=== PATIENT | male | born 1975 | race African-American/Black ===

== ENCOUNTER 2016-12-18 06:23 | Observation (INO) | payer SELFPAY ==
[2016-12-18] MEDS ORDERED: LORazepam INJ* 2 MG/ML 1 ML VIAL ONE ×2 (06:34→08:14)
[2016-12-18 06:44] LABS: Hematocrit 43 % (42-52); Hemoglobin 14.2 g/dl (14.0-18.0); Mean Corpuscular HGB Conc 33 g/dl (31-36); Mean Corpuscular Hemoglobin 30 pg (27-31); Mean Corpuscular Volume 91 fL (80-94); Mean Platelet Volume 10 um3 (7.4-10.4); Red Blood Count 4.78 10^6/ul (4.0-5.4); Red Cell Distribution Width 15 % (10.5-15); White Blood Count 11.2 10^3/ul (3.5-10.8)
[2016-12-18 06:47] LABS: Add Diff/Slide Review? Slide Review Added; Comments Flag Yes
--- NOTE | 2016-12-18 06:48 | ED ---
Candis Ohara Michael, scribed for Sukhdev Shoemaker MD on 12/18/16 at 0632 . Neurological HPI - HPI Summary HPI Summary: 64 y/o male was BIBA to the ED presenting with a sz episode this morning. The pt was found in the bathroom with blood on the floor and a large facial contusion on his forehead. He was not actively seizing when EMS arrived to the scene, and is arousal to voice per EMS. The pt's reports he has been off Keppra and other sz medication for 3 days per EMS. The PMHx is significant for sz. The HPI is limited due to level 5 caveat. - History of Current Complaint Stated Complaint: SEIZURE Hx Obtained From: EMS, Medical Records Hx From Patient Unobtainable Due To: Altered Mental Status Onset/Duration: Sudden Onset Timing: Intermittent Episodes Lasting: Onset Severity: Moderate Current Severity: Moderate Seizure Severity: Moderate Aggravating: Unknown Alleviating: Unknown Associated Signs and Symptoms: Positive: Seizure, AMS - Allergy/Home Medications Allergies/Adverse Reactions: Allergies Allergy/AdvReac Type Severity Reaction Status Date / Time No Known Allergies Allergy Verified 12/18/16 06:51 PMH/Surg Hx/FS Hx/Imm Hx Neurological History: Reports: Hx Seizures - Family History Known Family History: Positive: Unknown Family History: limited due to level 5 caveat - Social History Lives: With Family Review of Systems - ROS Summary Review of Systems Summary: limited due to level 5 caveat Neurological: Other - Sz. AMS. All Other Systems Reviewed And Are Negative: No Physical Exam Triage Information Reviewed: Yes Vital Signs Reviewed: Yes Completion Of Physical Exam Limited Due To: Extremis Appearance: Positive: Ill-Appearing Skin: Positive: Warm Head/Face: Positive: Other - sts mid forehead Eyes: Positive: KAREN Respiratory/Lung Sounds: Positive: Breath Sounds Present Cardiovascular: Positive: RRR Abdomen Description: Positive: Nontender, Soft Musculoskeletal: Positive: Strength/ROM Intact Neurological: Positive: Sensory/Motor Intact Diagnostics - Laboratory Result Diagrams: 12/19/16 06:42 12/19/16 06:41 Lab Statement: Any lab studies that have been ordered have been reviewed, and results considered in the medical decision making process. Course/Dx - Course Course Of Treatment: Pt is signed out to Dr. Valente. - Diagnoses Provider Diagnoses: RECURRENT SEIZURES, Status epilepticus Discharge - Discharge Plan Condition: Stable Disposition: ADMITTED TO [facility] The documentation as recorded by the Candis chaves Michael accurately reflects the service I personally performed and the decisions made by me, Sukhdev Shoemaker MD.
[2016-12-18 06:57] LABS: ALT 37 U/L (7-52); AST 35 U/L (13-39); Albumin 4.2 g/dL (3.2-5.2); Alkaline Phosphatase 85 U/L (34-104); Anion Gap 15 mmol/L (2-11); Blood Urea Nitrogen 13 mg/dL (6-24); CO2 Carbon Dioxide 20 mmol/L (22-32); Calcium 9.4 mg/dL (8.6-10.3); Chloride 101 mmol/L (101-111); EGFR African American 88.4 (>60); EGFR Non-African American 68.7 (>60); Globulin 3.1 g/dL (2-4); Glucose 133 mg/dL (70-100); Magnesium 1.8 mg/dL (1.9-2.7); Sodium 136 mmol/L (133-145); Total Protein 7.3 g/dL (6.4-8.9)
[2016-12-18 07:19] LABS: Alcohol < 10 mg/dL (<10)
--- NOTE | 2016-12-18 07:58 | RAD ---
INDICATION: Seizure. COMPARISON: There are no prior studies available for comparison. TECHNIQUE: Contiguous axial sections of the brain were obtained from the skull base to the vertex without contrast. FINDINGS: The ventricles, cisterns and sulci are within normal limits. No significant focal abnormality or mass effect is seen. There is no evidence for hemorrhage. There is focal soft tissue swelling and a hematoma anterior to the left frontal bone measuring approximately 4.1 x 1.0 cm in size. No fracture is seen. The visualized portion of the paranasal sinuses and mastoid air cells appear clear. IMPRESSION: 1. NO EVIDENCE FOR ACUTE INTRACRANIAL NORMALITY. 2. SOFT TISSUE SWELLING AND HEMATOMA IN THE SCALP ANTERIOR TO THE LEFT FRONTAL BONE.
[2016-12-18] MEDS ORDERED: Fosphenytoin(*) 1,000 MG in NS 0.9% 50 ML* 50 ML IVPB ONE (08:17)
[2016-12-18] MEDS ORDERED: LORazepam INJ* 2 MG/ML 1 ML VIAL IV PUSH ONE (08:18)
[2016-12-18] MEDS ORDERED: NS 0.9% 1000 ML* 2,000 ML IV ONE (08:20)
[2016-12-18] MEDS ORDERED: Acetaminophen SUPP* 650 MG SUPP PR PRN (08:43)
[2016-12-18] MEDS ORDERED: LORazepam INJ* 2 MG/ML 1 ML VIAL IV PUSH PRN ×2 (08:43→08:44)
[2016-12-18] MEDS ORDERED: Fosphenytoin(*) 100 MG/2 ML VIAL IVPB SCH (09:00)
[2016-12-18 09:12] LABS: Eosinophils % 4 % (0-6); Immature Granulocytes 1 % (0-9); Neutrophil % 29 % (38-83)
[2016-12-18 09:13] LABS: Add Path Review? YES; RBC Morphology Normal (Normal); Reactive Lymph % 26 % (0-6)
[2016-12-18 09:14] LABS: EBV Response NO
[2016-12-18 09:30] LABS: Mono Internal Control QC Line Present
[2016-12-18] MEDS ORDERED: Magnesium Sulfate 2 GM IV* 2 GM/50 ML BAG IVPB ONE (09:30)
--- NOTE | 2016-12-18 11:37 | HP ---
HISTORY AND PHYSICAL: DATE OF ADMISSION: 12/18/16 TIME OF EVALUATION: 08:40 a.m. PRIMARY CARE PROVIDER: Unknown at this time. CHIEF COMPLAINT: Seizure. HISTORY OF PRESENT ILLNESS: Mr. Hayes is a 41-year-old male with a reported history of seizure disorder, who was brought in to the emergency room after a seizure episode. At the time of my evaluation, the patient is postictal and unable to provide any history. My information is obtained from his chart, from the ED provider (Dr. Valente), and from his nurse, (Eileen Meyers). As per report, the patient was in a hotel ([employer]), when 911 was called for a patient with a reported history of seizures, but the patient had not had one in a long time. 911 reports that the caller was called Yoli Saleh, but when the hospital tried to call the hotel back, they were unable to contact this person. Around 07:20, the patient was described as arousable to voice, alert and oriented x3, updated about his condition and around 08:15, he was noted to have another episode of seizure and received 2 mg of Ativan. At the time of my evaluation, the patient is not communicating verbally and he is somewhat combative during physical examination and during placement of EEG leads. As per last night's ED provider's note (Dr. Shoemaker), the patient was found in the bathroom with blood on the floor and a large facial contusion on his forehead. He was not actively seizing when EMS arrived to the scene and was arousable to voice. They report that the patient's told them that the patient has been off Keppra and another seizure medications for 3 days, but this is all a thirdhand information through EMS. No further information is available at this point. PAST MEDICAL HISTORY: Seizure disorder. MEDICATION LIST: Unknown. ALLERGIES: Unknown. FAMILY HISTORY: Unable to obtain. SOCIAL HISTORY: Unable to obtain. REVIEW OF SYSTEMS: Unable to obtain due to his postictal state. PHYSICAL EXAMINATION GENERAL: The patient is a young -[place] male, lying in ER stretcher, in no acute distress, but moving around and trying to grab staff. VITAL SIGNS: Temperature 98, heart rate is 87, respiratory rate is 20, oxygen saturation is 95% on oxy mask, blood pressure is 150/92. HEENT: Right pupil is reactive to light, measures around 3 mm. On left, he has significant palpable edema and ecchymosis, and I was unable to open his left eye enough to see his left pupil, part of it because of significant edema and also secondary to his moving around and combativeness trying to hit staff. The patient also had an ecchymosis to his left frontal area. CHEST: Breath sounds present bilaterally with no added sounds. CVS: Normal S1, S2. Regular rate and rhythm. ABDOMEN: Soft. Bowel sounds are present. EXTREMITIES: No edema. NEUROLOGIC: The patient is lethargic, nonverbal at this point, but moving around in bed, and he appears to move all 4 extremities with no problems. LABORATORY/IMAGING DATA: The patient had a CBC that showed WBC of 11.2, hemoglobin of 14.2, hematocrit of 43, platelets of 188 with 35% neutrophils. INR was 0.85. Chemistries showed sodium of 136, potassium of 4, chloride 101, bicarb of 20, anion gap of 15, BUN of 13, creatinine 1.1, glucose of 133, lactic acid of 8.1, calcium 9.4, magnesium of 1.8. Serum alcohol level was less than 10. Urine drug screen was ordered, but not yet done. CT of the brain without contrast showed no evidence for acute intracranial abnormality. There is soft tissue swelling and hematoma in the scalp anterior to the left frontal bone. ASSESSMENT AND PLAN: Mr. Hayes is a 41-year-old male with a reported history of seizure disorder and noncompliance with medications, who presented to the emergency room after an episode of seizure last night and another one around 08: 15 today in the emergency room. 1. Seizure disorder: Suspect these episodes are likely secondary to noncompliance. We will try to obtain more information after we have information regarding a family member. At this point, as his situation is unclear, we are going to admit him to the intensive care unit for close monitoring. A Neurology consultation was requested with Dr. Koo and she recommended loading him with fosphenytoin and she will have an EEG performed and this is already on the way. He will be placed on seizure precautions, neuro checks, and further workup will be pursued depending on Dr. Koo's recommendations. 2. DVT prophylaxis. The patient has a score of 0 and at this point, he is going to have SMOOTH stockings and when he is more awake, we will encourage ambulation. 3. Code status is full. TIME SPENT: Approximately 50 minutes was spent with medical records review, physical examination to complete admission. More than half of this time was spent [id number] with the patient and coordination of care. [id number]/[facility] #: [id number] ROMERO
[2016-12-18] MEDS ORDERED: NS 0.9% 1000 ML* 1,000 ML IV SCH (12:00)
--- NOTE | 2016-12-18 12:25 | ED ---
Mayda, Liam Melissa, scribed for Gideon Valente MD on 12/18/16 at 0848 . Progress - Progress Note Progress Note: Seizure patient was signed out from Dr. Shoemaker. Hx unknown and from out of town. Pt is noncompliant with medication. Called into room at 0814 as pt was having a sz. Will be given 2 Ativan and Fosphenytoin. Will call hospitalist. Physical: Actively seizing. Sharking arms, clenching teeth, and unable to open mouth. HEENT: The head is normocephalic and atraumatic. The pupils are equal and reactive. The conjunctivae are clear and without drainage. Nares are patent and without drainage. Mouth reveals moist mucous membranes and the throat is without erythema and exudate. Ecchymosis of left eye. Neck is supple with full range of motion and non-tender. There are no carotid bruits. There is no neck vein distension. Respiratory: Lungs are clear to auscultation and breath sounds are symmetrical and equal. Cardiovascular: Heart is regular rate and rhythm. There is no murmur or rub auscultated. There is no peripheral edema. Abdomen: The abdomen is soft and non-tender. There are normal bowel sounds heard in all four quadrants and there is no organomegaly palpated. Musculoskeletal: There is no back pain noted. Extremities are non-tender with full range of motion. There is good capillary refill. There is no peripheral edema or calf tenderness elicited. Neurological: Patient is alert and oriented to person, place and time. No neurological exam because actively seizing. Noncompliant. BRAIN CT IMPRESSION: 1. NO EVIDENCE FOR ACUTE INTRACRANIAL NORMALITY. 2. SOFT TISSUE SWELLING AND HEMATOMA IN THE SCALP ANTERIOR TO THE LEFT FRONTAL BONE. Course/Dx - Course Course Of Treatment: Pt is signed out to Dr. Valente. - Diagnoses Provider Diagnoses: RECURRENT SEIZURES, Status epilepticus - Provider Notifications Discussed Care Of Patient With: Dr. Koo (Neurologist) notified @ 0821. Dr. Salamanca (Hospitalist) @ 0830. Will admit to a monitor bed (possibly to ICU). Discharge - Discharge Plan Condition: Stable Disposition: ADMITTED TO [facility] The documentation as recorded by the Shin chaves [place] accurately reflects the service I personally performed and the decisions made by Ambrosio srinivasan Drew, MD.
[2016-12-18] MEDS: Fosphenytoin(*) 100 MG in NS 0.9% 50 ML* 50 ML IVPB SCH ×2 (14:26→21:01)
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
[2016-12-18 17:24] LABS: Urine Bilirubin Negative (Negative); Urine Glucose Negative (Negative); Urine Nitrite Negative (Negative)
[2016-12-18 17:33] LABS: Benzodiazepine Urine Screen None Detected (None Detect)
--- NOTE | 2016-12-18 23:08 | EEG ---
ELECTROENCEPHALOGRAPHY: DATE OF STUDY: 12/18/16 - ROOM #433 LOCATION: The patient is an inpatient. ORDERING PHYSICIAN: Dr. Valente. CLINICAL PROBLEM: This is a 41-year-old man, who presented to the emergency department with a seizure this morning. He was found in the bathroom with blood on the floor and a large facial contusion. He then had another witnessed seizure in the ER. He is unable to give history, but it appears that he is on Keppra and may have a history of a seizure disorder. He was given fosphenytoin and Ativan in the emergency department. EEG is requested to evaluate for epileptiform abnormalities or subclinical seizures. MEDICATIONS: 1. Ativan. 2. Fosphenytoin. 3. Keppra. REPORT: The background lacked the organization expected of the typical waking or sleep background. There was diffuse, polymorphic, mixed frequency slowing with superimposed excessive beta activity, which is most prominent in the frontocentral regions. With arousals, both spontaneously and to voice and sternal rub, there was emergence of faster frequency activity, but no evident organization to the background. Throughout the recording, there were no epileptiform discharges or focal features. CLINICAL IMPRESSION: This is an abnormal encephalopathic EEG due to lack of background organization and diffuse background slowing, but the EEG retains reactivity. These findings are suggestive of a moderate, nonspecific, diffuse encephalopathy. Excess beta activity is consistent with medication effect. There are no epileptiform abnormalities or seizures noted. [id number]/[facility] #: [id number] [facility]
[2016-12-19 07:00] LABS: Hematocrit 40 % (42-52); Hemoglobin 13.2 g/dl (14.0-18.0); Mean Corpuscular HGB Conc 33 g/dl (31-36); Mean Corpuscular Hemoglobin 30 pg (27-31); Mean Corpuscular Volume 91 fL (80-94); Mean Platelet Volume 10 um3 (7.4-10.4); Red Blood Count 4.38 10^6/ul (4.0-5.4); Red Cell Distribution Width 15 % (10.5-15); White Blood Count 9.6 10^3/ul (3.5-10.8)
[2016-12-19 07:18] LABS: BUN/Creatinine Ratio 9.3 (8-20); Calcium 8.4 mg/dL (8.6-10.3); EGFR African American 127.3 (>60); Potassium 4.2 mmol/L (3.5-5.0)
[2016-12-19] MEDS ORDERED: Influenza VAC *QUAD* 2016-17* 0.5 ML SYRINGE IM ONE (09:00)
[2016-12-19] MEDS: Fosphenytoin(*) 100 MG in NS 0.9% 50 ML* 50 ML IVPB SCH (09:49)
[2016-12-19 12:15] VITALS: BP 138/83
--- NOTE | 2016-12-20 00:08 | DS ---
DISCHARGE SUMMARY: DATE OF ADMISSION: DATE OF DISCHARGE: 12/19/16 PRIMARY DIAGNOSIS: Epilepsy with breakthrough seizures. SECONDARY DIAGNOSES: 1. Medication nonadherence. 2. Lactic acidosis. 3. Reactive lymphocytosis. 4. Acute kidney injury. MEDICATIONS ON DISCHARGE: Include phenytoin ER 300 mg at bedtime. HISTORY OF PRESENT ILLNESS AND HOSPITAL COURSE: This is a 41-year-old man with a past medical history of seizure disorder since 2016, presented to the emergency room after having a breakthrough seizure with another seizure en route to the hospital with EMS. He was loaded with fosphenytoin and treated with IV Ativan. He was seen in the emergency room and was postictal, able to contribute some of the information to admitting physician and neurologist. Did report that he had previously been on Keppra. However, did not like it because it made him dizzy and he had more breakthrough seizures. Previously, he had indicated he had been on Dilantin 100 mg 3 times a day which he confirmed today prior to discharge. However, he had been visiting [place] from [place]. He did not have any medications. He did indicate to the neurologist that he had been out of his medications for approximately a month. He had tonic-clonic seizure, loss of consciousness from standing position, hit his head with additional seizure en route to [facility] as indicated above. He was monitored overnight with serial neuro checks as well as seizure precautions, received IV fluids, resolution of his acute kidney injury, his lactic acidosis which is suspected to be in the setting of his seizure activity. A new prescription for phenytoin ER was sent to the pharmacy of his choosing. Significant counseling was undergone with the patient pertaining to careful adherence to his medications to prevent future seizures. Additionally, counseling was undergone concerning activities to avoid with his known epilepsy. The patient acknowledged understanding. The patient has a followup with his neurologist, Dr. Arriola, in [place] in [place] on the , 3 days from today. Reasons to return to the hospital including, but not limited to, recurrent or worsening symptoms including recurrent seizures, chest pain, shortness of breath , nausea, vomiting, lightheadedness, fevers, chills, night sweats, inability to obtain or tolerate his medications were discussed with the patient. He acknowledged understanding. TIME SPENT: Greater than 45 minutes was spent on the discharge of this patient , greater than half was face to face with the patient. CC: Dr. Arriola in [place]. * [id number]/[facility] #: [id number] [facility]
== END 2016-12-19 14:00 | disposition home or self-care (01) ==
LOC: EDBD → ED 06:23 → ICU 08:40 → INTOOBSV 08:40 → MEDTELE 12-19 03:55
PROVIDERS: ADMIT Internal Medicine; ATTEND Internal Medicine
DX: G40.909 Epilepsy, unspecified, not intractable, without status epilepticus (principal); Z91.14 Patient's other noncompliance with medication regimen; E87.2 Acidosis; D72.820 Lymphocytosis (symptomatic); N17.9 Acute kidney failure, unspecified; Z23 Encounter for immunization; F17.210 Nicotine dependence, cigarettes, uncomplicated; I49.9 Cardiac arrhythmia, unspecified; R94.01 Abnormal electroencephalogram [EEG]
CPT/HCPCS: 36415; 70450; 80048; 80053; 80177; 80185; 80307; 80320; 81003; 83605; 83735; 85025; 85060; 85610; 86308; 87641; 90471; 90686; 93005; 95819; 96365; 96375; 96376; 99284; G0008; G0378; G0480; J2060; Q2009

== ENCOUNTER 2018-04-29 07:51 | Observation (INO) | payer SELFPAY ==
--- NOTE | 2018-04-29 08:08 | ED ---
Syncope/Near Syncope - HPI Summary HPI Summary: This is andie Jones documenting for attending Silvina Araya M.D. This patient is a 42 year old M with hx epilepsy presenting to [facility] accompanied by his girlfriend, Reena, with a chief complaint of seizure x 2 witnessed by girlfriend since this am, prior to admission. Pt did wake up between seizuresper girlfriend but is more drowsy than usual. PMHx sz, HTN. Pt Pt was released from long-term ([facility]) 2 months ago. Pt has also been in [facility] prior to this. Pt's 1st seizure lasted 3 minutes (which occurred during intercourse), and the 2nd lasted 5 minutes. The pt bit his tongue during the seizures this am. Pt is supposed to be taking Rx for phentoin ER 300mg for hx seizure disorder, and an unknown HTN medication. Pt's girlfriend reports pt has not had seizure or anti HTN medication since he was released from long-term. Pt denies hitting head, as he was in bed. Pt denies using drugs or alcohol last night, LESTER, dizziness, CP, SOB, abd pain, neck, and back pain. He denies FHx sz. Neg PSHx. HR 100, O2 sat 92, BP 149/97 upon initial eval in the ED. - History Of Current Complaint Chief Complaint: EDSeizure Hx Obtained From: Patient, Family/Law Secretary - girlfriend, EMS Onset/Duration: Sudden Onset, Lasting Minutes, Resolved Timing: Intermittent Episode Lasting - 2x episodes, 3 then 5 minutes Context: Witnessed Activity At Onset: Other - during intercourse for the first seizure, In bed Associated Head Trauma: No Aggravating Factor(s): Nothing Alleviating Factor(s): Spontaneous Resolution Associated Signs And Symptoms: Seizure, Other - bitten tongue Related History: Similar Episode/Dx as - epileptic seizure Frequency: Episodes x___ - 2, Episodes Lasting ____ (in Mins/Days/Weeks/Years) - 3 minutes then 5 minutes - Allergies/Home Medications Allergies/Adverse Reactions: Allergies Allergy/AdvReac Type Severity Reaction Status Date / Time milk Allergy Vomiting Verified 05/02/18 14:16 Home Medications: Home Medications Phenytoin CAP(*) [Dilantin CAP(*)] 300 mg PO BEDTIME 04/29/18 [History Confirmed 04/29/18] PMH/Surg Hx/FS Hx/Imm Hx Previously Healthy: No - polysubstance abuse, noncompliance with medication Cardiovascular History: Reports: Hx Hypertension Sensory History: Denies: Hx Contacts or Glasses, Hx Legally Blind, Hx Deafness, Hx Hearing Aid Opthamlomology History: Denies: Hx Contacts or Glasses, Hx Legally Blind EENT History: Denies: Hx Deafness Neurological History: Reports: Hx Seizures Psychiatric History: Reports: Hx Substance Abuse - Surgical History Surgery Procedure, Year, and Place: neg Infectious Disease History: No Infectious Disease History: Denies: Traveled Outside the [place] in Last 30 Days - Family History Known Family History: Negative: Hypertension, Seizure Disorder - Social History Lives: Dormitory/Roommates - with girlfriend; recently released from long-term Alcohol Use: Weekly Hx Substance Use: Yes - in past, denies today Substance Use Type: Reports: None Hx Tobacco Use: Yes Smoking Status (MU): Heavy Every Day Tobacco Smoker Review of Systems Negative: Fever Positive: Other - bitten/cut tongue Negative: Chest Pain Negative: Shortness Of Breath Negative: Abdominal Pain Negative: Arthralgia - Neck, Myalgia - Back Neurological: Other - NEGATIVE: Dizziness; POSITIVE: two witnessed seizures prior to ED presentation Negative: Headache All Other Systems Reviewed And Are Negative: Yes Physical Exam - Summary Physical Exam Summary: Appearance: Well-appearing, no pain distress, well-nourished, appears post- ictal with slow answers, but can answer yes/no and offer some history. Skin: Warm, color reflects adequate perfusion, dry Head: Normal Head/Face inspection, atraumatic scalp and face Eyes: Conjunctiva clear ENT: laceration on left-middle tongue, bleeding controlled, teeth intact, bite is usual Neck: Supple, no nodes, no JVD, non-tender Respiratory: Lungs clear, normal breath sounds, no respiratory distress Cardio: RRR, No murmur, pulses normal, brisk capillary refill Abdomen: Soft, non-tender Bowel sounds: Present Musculoskeletal: Strength Intact/ROM intact, no calf tenderness, no edema. Psychological: Normal Neuro: A&O x3, CN II-XII intact, motor function 5/5, sensation intact, cerebellar normal Triage Information Reviewed: Yes Vital Signs On Initial Exam: Initial Vitals Temp Pulse Resp BP Pulse Ox 98.5 F 100 18 159/105 92 04/29/18 07:54 04/29/18 07:54 04/29/18 07:54 04/29/18 07:54 04/29/18 07:54 Vital Signs Reviewed: Yes Diagnostics - Vital Signs Vital Signs Temp Pulse Resp BP Pulse Ox 04/29/18 08:00 96 17 96 04/29/18 07:57 99 16 93 04/29/18 07:55 102 16 149/97 94 04/29/18 07:54 98.5 F 100 18 159/105 92 - Laboratory Result Diagrams: 04/30/18 06:11 04/30/18 06:11 Lab Statement: Any lab studies that have been ordered have been reviewed, and results considered in the medical decision making process. - Radiology CXR Xray Interpretation: No Acute Changes Radiology Interpretation Completed By: Radiologist - No evidence for acute disease. Dr. Araya has reviewed this report. - CT Brain CT Interpretation: No Acute Changes CT Interpretation Completed By: Radiologist - 1. No CT apparent acute intracranial abnormality. 2. Likely cerumen impaction of the left external auditory canal. Please correspond to direct visualization. Dr. Araya has reviewed this report. - EKG 0839 Cardiac Rate: NL - 95 EKG Rhythm: Sinus Rhythm ST Segment: Normal Ectopy: None EKG Interpretation: nl axis, nl QTc, nl KARLY CT EKG Comparison: No Significant Change - from 12/18/16 Re-Evaluation - Re-Evaluation First Eval Re-Evaluation Time: 09:38 Change: Worse Comment: pt seizing, 1 mg Ativan ordered. Blood coming from mouth, similar sx this episode as the other ones today (per girlfriend Reena at bedside). Course/Dx Course Of Treatment: 42 yo M with hx epilepsy dx'd by Dr. Koo 11/2016, noncompliant with phenytoin ER 300 daily, since release from long-term 2months ago, presents with hx two seizures today at home and then a third seizure in the ED. Pt is loaded with fosphenytoin 1g IV per consultation with Dr. Gutiérrez, and is admitted for further evaluation and treatment. Of note, pt's tox screen is positive for cocaine and cannabinoids. Also pt's BP is poorly controlled and pt is reported to be noncompliant with BP medication, in addition to anti-seizure medication, since release from long-term 2 months ago. During the ED course, at 0938 pt seizing, witnessed by Dr. Araya, full tonic clonic seizure. 1 mg Ativan IM ordered, and seizure stopped after approx 2 minutes. Blood coming from mouth during seizure, suctioned and no adverse effects noted. This episode is similar to the other seizures today (per girlfriend Reena). Elevated CK noted, consistent with recurrent seizures. Pt hydrated for this. Pt given Ativan 1mg IM, nl saline IV, Fosphenytoin 1gm IV load in the ED. CT brain, CXR negative. EKG nl sinus 95 BPM, nl KARLY CT, nl QTc, no acute changes. Dr. Egan will admit pt. Dr. Gutiérrez, neurology, will consult. - Diagnoses Differential Diagnosis/HQI/PQRI: Positive: Cerebral Vascular Accident, Metabolic Reaction, Medication Reaction, Other - acute on chronic seizure Provider Diagnoses: Recurrent seizures, Epilepsy, Hypertension, poor control, Elevated CK - Physician Notifications Discussed Care of Patient With: Michael Gutiérrez Time Discussed With Above Provider: 09:53 Instructed by Provider To: Other - Recommends [address] Gutiérrez reviewed Dr. Koo's note from 12/18/16, dx true epilepsy, sz not from EtOH withdrawal alone. - Critical Care Time Critical Care Time: 30-74 min - 30min, administration of ativan IM, during third acute recurrent seizure within 3 hrs, treatment of elevated CK ( rhabdomyolysis) with IV fluids Discharge - Sign-Out/Discharge Documenting (check all that apply): Patient Departure - admit - Discharge Plan Condition: Stable Disposition: ADMITTED TO [facility] - Billing Disposition and Condition Condition: STABLE Disposition: Admitted to [facility] Consult Consult: 1003 Dr. Egan accepts for admission.
--- NOTE | 2018-04-29 09:08 | RAD ---
INDICATION: Hypertension and seizure. COMPARISON: There are no prior studies available for comparison. TECHNIQUE: A portable view of the chest was obtained. FINDINGS: Cardiac and mediastinal contours appear to be within normal limits. The lungs are clear. No pleural effusion is seen. IMPRESSION: NO EVIDENCE FOR ACUTE DISEASE.
--- NOTE | 2018-04-29 09:16 | RAD ---
INDICATION: Seizure COMPARISON: CT the brain December 18, 2016 TECHNIQUE: Contiguous axial sections of the brain were obtained from the skull base to the vertex without contrast. FINDINGS: The ventricles, cisterns and sulci are within normal limits. The lunsford-white matter differentiation is adequately maintained and there is no sulcal effacement. No significant focal abnormality or mass effect is present. There is no evidence for intracranial hemorrhage. No significant focal osseous abnormality is present. The visualized portion of the paranasal sinuses appear clear. The mastoid air cells are well aerated bilaterally. In the left external auditory canal there is a 5 mm soft tissue focus most consistent with cerumen. IMPRESSION: 1. No CT apparent acute intracranial abnormality. 2. Likely cerumen impaction of the left external auditory canal. Please correspond to direct visualization.
[2018-04-29 09:18] LABS: ABS Basophils 0.1 10^3/ul (0-0.2); ABS Eosinophils 0.1 10^3/ul (0-0.6); ABS Lymphocytes 1.1 10^3/ul (1.0-4.8); ABS Monocytes 0.6 10^3/ul (0-0.8); ABS Neutrophils 10.4 10^3/ul (1.5-7.7); ABS Nucleated RBC 0 10^3/ul; Eosinophil % 1.1 % (0-6); Hematocrit 42 % (42-52); Hemoglobin 14.1 g/dl (14.0-18.0); Lymphocyte % 8.6 % (25-47); Mean Corpuscular HGB Conc 33 g/dl (31-36); Mean Corpuscular Hemoglobin 30 pg (27-31); Mean Corpuscular Volume 91 fL (80-94); Mean Platelet Volume 9.9 um3 (7.4-10.4); Nucleated Red Blood Cells % 0.1; Platelet Count 190 10^3/ul (150-450); Red Blood Count 4.66 10^6/ul (4.00-5.40); Red Cell Distribution Width 15 % (10.5-15); White Blood Count 12.2 10^3/ul (3.5-10.8)
[2018-04-29 09:26] LABS: INR 0.87 (0.77-1.02)
[2018-04-29 09:36] LABS: EGFR Non-African American 69.7 (>60)
[2018-04-29] MEDS ORDERED: NS 0.9% 1000 ML* 2,000 ML IV ONE (09:37)
[2018-04-29] MEDS ORDERED: LORazepam INJ* 2 MG/ML 1 ML VIAL ONE (09:39)
[2018-04-29] MEDS ORDERED: LORazepam INJ* 2 MG/ML 1 ML VIAL IV PUSH ONE (09:41)
[2018-04-29] MEDS ORDERED: LORazepam INJ* 2 MG/ML 1 ML VIAL IM ONE (09:42)
[2018-04-29] MEDS ORDERED: Fosphenytoin(*) 1,000 MG in NS 0.9% 50 ML* 50 ML IVPB ONE (09:55)
[2018-04-29] MEDS ORDERED: Al Hydrox/Mg Hydrox/Simet LIQ* 30 ML UDC PO PRN (10:05)
[2018-04-29] MEDS ORDERED: Acetaminophen TAB* 325 MG PO PRN ×2 (10:05→11:08)
[2018-04-29] MEDS ORDERED: LORazepam INJ* 2 MG/ML 1 ML VIAL IV PUSH PRN (10:39)
[2018-04-29] MEDS ORDERED: Thiamine IV* 100 MG/ML 2 ML VIAL IM ONE (11:08)
[2018-04-29 11:49] LABS: Urine Appearance Clear; Urine Blood 2+ (Negative); Urine Color Yellow; Urine Ketones Negative (Negative); Urine Protein 1+(30 mg/dL) (Negative); Urine Red Blood Cell Absent (Absent); Urine Specific Gravity 1.015 (1.010-1.030); Urine Urobilinogen Negative (Negative); Urine White Blood Cell Trace(0-5/hpf) (Absent)
[2018-04-29] MEDS ORDERED: LORazepam INJ* 2 MG/ML 1 ML VIAL IM SCH (12:00)
[2018-04-29] MEDS: NS 0.9% 1000 ML* 1,000 ML IV SCH ×2 (12:07→22:28)
[2018-04-29] MEDS: Enoxaparin(*) 40 MG/0.4 ML SYR SUBCUT SCH (12:07)
--- NOTE | 2018-04-29 13:29 | HP ---
HISTORY AND PHYSICAL: DATE OF ADMISSION: 04/29/18 TIME OF ADMISSION: 11:00 a.m. CHIEF COMPLAINT: Seizure. HISTORY OF PRESENT ILLNESS: This is a 42-year-old man with history of epilepsy , who presented to the emergency department this morning when his girlfriend called EMS for two seizures at home. The history is obtained mostly from his girlfriend, Ciarra because Mr. Hayes is postictal and also received Ativan and fosphenytoin recently. He is drowsy, but arousable and able to provide little of the history. Ciarra explains to me that this morning at 4 a.m., they were having intercourse when he experienced a left-sided tonic-clonic seizure that she believes lasted approximately 5 minutes. He was unconscious and approximately one hour later, he had another similar appearing seizure that was mostly left sided. He was unconscious and he bit his tongue. She reports that because of the tongue bite, he was bleeding all over the bed, so she called EMS. When he arrived to the emergency department, another seizure occurred and was witnessed by the ED staff. In the emergency department, he received Ativan and fosphenytoin. Ciarra told me that Mr. Hayes was released from skilled nursing approximately 3 months ago , but she is unsure of the timeline, they have been only together for a few months. She states that he had the medications he was discharged with, however, has not had insurance since that time and has not been able to refill them. Then, one month ago, he had another seizure that was associated with alcohol use. He was admitted to [facility] at that time, but again without insurance could not fill his antiepileptics that he was discharged with. She states that both of his seizures since she has known him have been associated with alcohol use and alcohol withdrawal. His normal alcohol use is approximately eight cans of beers per day and last night, he only had two cans of beer. He also has history of hypertension and has not taken any medications for several months. He has no doctor that he follows that she knows of. He has no head trauma that she knows of. PAST MEDICAL HISTORY: Hypertension and epilepsy. REVIEW OF SYSTEMS: Unable to be obtained due to his postictal state. His girlfriend, Ciarra reports no recent illness or fevers. SOCIAL HISTORY: Mr. Hayes lived in [place]. He uses marijuana, alcohol and cigarettes. FAMILY HISTORY: His girlfriend, Ciarra is unable to provide me with a family history and he is unable to provide one as well. HOME MEDICATIONS: None. PHYSICAL EXAMINATION GENERAL: Drowsy young man, who arouses to voice and answers some questions briefly. He follows my simple commands, but is unable to explain the details of the morning or much of history. VITAL SIGNS: Temperature 98.4, heart rate 106, respiratory rate 16, pulse ox 95 % on room air, blood pressure 181/103. HEENT: Pupils are 4 mm bilaterally and reactive to light. He is unable to cooperate with an EOMI exam. Oral mucosa is moist. He has a laceration on the right side of his tongue. NECK: No JVP. No adenopathy. LUNGS: Clear bilaterally, but he coughed several times during my exam. CHEST: Tachycardic, no murmurs. Regular rhythm. ABDOMEN: Soft, nontender, nondistended. No guarding or rebound. No CVA tenderness. No spinous process tenderness. EXTREMITIES: Strength 5/5 throughout. Coordination is intact and he follows simple commands. He is oriented to person and place, but not in the context of the situation. DIAGNOSTIC STUDIES/LABORATORY DATA: White blood cell 12.2, hemoglobin 14.1, platelets 190, CK 585. Lactic acid 1.2. Sodium 137, potassium 4.3, chloride 104, BUN 14, creatinine 1.16, phenytoin level less than 2.5. Serum alcohol less than 10. Chest x-ray: No evidence for acute disease. Brain CT: No CT apparent acute intracranial abnormality. Likely cerumen impaction of the left external auditory canal. EKG: Normal sinus rhythm, normal axis, normal intervals, no ST or T changes. ASSESSMENT AND PLAN: This is a 42-year-old man with history of epilepsy and hypertension, who presented to the emergency room after two witnessed seizures at home and found to have a third seizure in the ED. 1. Tonic clonic seizure. It appears that he has a history of epilepsy, but also has had history of alcohol withdrawal seizures. I suspect alcohol withdrawal may have played a part in this seizure as he normally drinks eight beers a day and last night only had two beers; however, he also has been out of his antiepileptic for at least a month according to his girlfriend. The emergency department has been in contact with Dr. Gutiérrez and I will consult him officially and appreciate his input regarding further antiepileptic. Mr. Hayes has received a dose of fosphenytoin in the emergency department. I am putting him on seizure precautions and Ativan p.r.n. another seizure. His CT head is unremarkable and a urine toxic screen is pending. 2. Hypertension. It is poorly controlled and he has also been out of these medications for over a month according to his girlfriend. It appears that on his last discharge from [facility] in 2017, he was not on any antihypertensives, so it is possible his hypertension at this time is also related to alcohol withdrawal rather than essential hypertension. I will request records from [facility] from a month ago to see if he was hypertensive then and if he was discharged on antihypertensives. 3. Alcohol abuse. I am starting him on the [place] protocol. 4. DVT prophylaxis. Lovenox. 5. Disposition. Admit to inpatient services. 6. Greater than 60 minutes was spent on this admission, over half of that time was spent face to face with the patient and his girlfriend. [id number]/[facility] #: [id number] [place]
[2018-04-29] MEDS: LORazepam INJ* 2 MG/ML 1 ML VIAL IV PUSH SCH ×2 (15:58→19:27)
[2018-04-29] MEDS: Nicotine PATCH 14 MG/24 HR* PATCH TRANSDERM SCH (19:28)
[2018-04-29] MEDS ORDERED: Phenytoin CAP(*) 100 MG CAP.ER PO SCH (21:00)
[2018-04-29] MEDS ORDERED: Nicotine Patch Removal NOTE FOLLOW UP SCH (21:00)
--- NOTE | 2018-04-29 21:06 | CONS ---
NEUROLOGY CONSULTATION: DATE OF CONSULT: 04/29/18 LOCATION: He is in the emergency room. REFERRING PROVIDER: Dr. Silvina Araya. CHIEF COMPLAINT: Seizures. HISTORY OF PRESENT ILLNESS: Major Hayes is a 42-year-old man who presented to the emergency room after a couple of seizures at his girlfriend's home and then one in the emergency room. In reviewing prior records, he had seen Dr. Koo in the hospital when he came in with recurrent seizures and had a prior history of seizures going back an indeterminate number of years. He has history of noncompliance and drug dependence. He was prescribed phenytoin at discharge. His girlfriend said that he got out of incarceration about a month ago. As far as she knows, he is not taking any medication currently, but is supposed to be. In the emergency room, he was given Ativan after his presumptive third seizure. I was called by Dr. Araya and recommended that he be loaded with fosphenytoin 1000 phenytoin equivalent units. When I first examined him in the emergency room, he was somnolent. He would move his left side a little better than his right to nasal tickle response. He was nonverbal. Sometimes he would weakly open his eyes. PAST MEDICAL HISTORY: Notable for epilepsy, polysubstance abuse. The rest of the history is unknown. MEDICATIONS: As far as we know, he is not on any medications at home. When he was in the hospital last year, he was discharged on phenytoin extended release 300 mg per day. He was incarcerated up until about a month ago according to his girlfriend and was not on any medications. ALLERGIES: According to computer records, he does not have any drug allergies. REVIEW OF SYSTEMS: Mainly from his girlfriend and computer records. He had apparently been fine up until the episodes this morning. He was drinking alcohol fairly regularly. PHYSICAL EXAM: Temperature in the emergency room was 99.5, blood pressure 152/ 95, heart rate in the 90s. Skin was warm and dry. He had laceration on the left lateral tongue. Neck was supple. Heart is in a regular rhythm without murmurs. There are no cervical bruits. Lungs are clear anterolaterally. Neurologically, he is obtunded. I can get him to respond to nasal tickle and weakly open his eyes, but I could not get him to follow commands or verbalize. He seemed to move his left side a little better than his right, but he moved all of his limbs somewhat randomly. DIAGNOSTIC STUDIES/LAB DATA: Includes a CBC with an elevated white blood cell count of 12.2, chemistry profile is within normal limits. Creatine kinase is elevated at 585, TSH normal at 0.71. Lactic acid normal at 1.2. Urinalysis notable for 2+ blood and 1+ protein. Tox screen today is positive for cocaine and cannabinoids. Alcohol level is undetectable and phenytoin is undetectable. CT of the brain is interpreted as normal. IMPRESSION AND PLAN: Impression is that of recurrent seizures in a patient with noncompliance. His EEG last November revealed slowing, but no epileptiform discharges. He has been loaded with fosphenytoin and I recommended maintaining him on phenytoin 300 mg p.o. per day. An EEG has been ordered. Hopefully, he will come around and we can discuss with him the importance of compliance. Phenytoin is fairly expensive and so hopefully he cannot afford 300 mg of phenytoin a day until he can get better support structure with health care insurance. He will need to be advised that his use of cocaine or other narcotics as well as alcohol increases his risk of seizures. Also that he may not drive a motor vehicle for a minimum of 6 months and must report his seizure disorder to the Department of Motor Vehicles if he has a local city driver's license. [id number]/[facility] #: [id number] [place]
--- NOTE | 2018-04-30 01:05 | EEG ---
ELECTROENCEPHALOGRAM REPORT: DATE OF STUDY: 04/29/18 LOCATION: He is an inpatient in room 450. REFERRING PHYSICIAN: Dr. Gutiérrez. CLINICAL PROBLEM: Repetitive seizures the day of this recording. The patient was loaded with fosphenytoin. The patient received 1 mg of lorazepam earlier. REPORT: This 16-channel EEG is remarkable for background rhythms consisting of a well-formed alpha rhythm in the posterior derivations at 10 cycles per second. Moderate voltage central and bifrontal beta rhythms are also noted. There are occasional small phase reversing spikes and sharp waves in the left frontocentral region closest to the C3 and F3 electrodes. The patient drowses and falls asleep several times during the recording with vertex slowing and sleep spindles seen parasagittally. Activation procedures were not attempted. There are no clinical events. CLINICAL IMPRESSION: Abnormal EEG due to phase reversing sharp and spike discharges from the left frontocentral region compatible with epileptiform focus in that region. There were no ictal events. [id number]/[facility] #: [id number] [facility]
[2018-04-30 06:22] LABS: Hematocrit 40 % (42-52); Hemoglobin 13.5 g/dl (14.0-18.0); Mean Corpuscular HGB Conc 34 g/dl (31-36); Mean Corpuscular Hemoglobin 31 pg (27-31); Mean Corpuscular Volume 91 fL (80-94); Mean Platelet Volume 9.8 um3 (7.4-10.4); Platelet Count 161 10^3/ul (150-450); Red Blood Count 4.39 10^6/ul (4.00-5.40); Red Cell Distribution Width 15 % (10.5-15); White Blood Count 9.6 10^3/ul (3.5-10.8)
[2018-04-30 06:41] LABS: EGFR Non-African American 92.3 (>60)
[2018-04-30 07:30] LABS: ABS Basophils 0.3 10^3/ul (0-0.2); ABS Eosinophils 0.4 10^3/ul (0-0.6); ABS Lymphocytes 1.6 10^3/ul (1.0-4.8); ABS Monocytes 0.5 10^3/ul (0-0.8); ABS Neutrophils 6.8 10^3/ul (1.5-7.7); ABS Nucleated RBC 0 10^3/ul; Eosinophil % 4.5 % (0-6); Lymphocyte % 16.6 % (25-47); Nucleated Red Blood Cells % 0.1
[2018-04-30] MEDS ORDERED: Thiamine TAB* 100 MG TAB PO SCH (09:00)
[2018-04-30] MEDS ORDERED: Folic Acid TAB* 1 MG PO SCH (09:00)
[2018-04-30] MEDS ORDERED: Multivitamins/Minerals TAB PO SCH (09:00)
[2018-04-30] MEDS: Nicotine PATCH 14 MG/24 HR* PATCH TRANSDERM SCH (09:12)
[2018-04-30 11:29] VITALS: BP 129/82
[2018-04-30] MEDS: Enoxaparin(*) 40 MG/0.4 ML SYR SUBCUT SCH (11:54)
--- NOTE | 2018-04-30 13:35 | PN ---
Progress Note - Progress Note Date of Service: 04/30/18 SOAP: Neurology progress note Date of service: 04/30/18 Subjective: No acute events overnight, and no further seizures. Objective: Vital Signs Temp Pulse Resp BP Pulse Ox 98.2 F 88 16 129/82 99 04/30/18 11:02 04/30/18 11:02 04/30/18 11:02 04/30/18 11:02 04/30/18 11:02 Current Medications Acetaminophen (Tylenol Tab*) 650 mg PO Q4H PRN PRN Reason: FEVER/PAIN Last Admin: 04/29/18 19:28 Dose: 650 mg Acetaminophen (Tylenol Tab*) 650 mg PO Q4H PRN PRN Reason: PAIN Al Hydrox/Mg Hydrox/Simethicone (Maalox Plus*) 30 ml PO Q6H PRN PRN Reason: INDIGESTION Enoxaparin Sodium (Lovenox(*)) 40 mg SUBCUT Q24H [facility] Last Admin: 04/30/18 11:54 Dose: 40 mg Folic Acid (Folvite Tab*) 1 mg PO DAILY [facility] Last Admin: 04/30/18 09:12 Dose: 1 mg Sodium Chloride (Ns 0.9% 1000 Ml*) 1,000 mls @ 100 mls/hr IV PER RATE [facility] Last Admin: 04/29/18 22:28 Dose: 100 mls/hr Lorazepam (Ativan Inj*) 1 mg IV PUSH Q10M PRN PRN Reason: seizure Lorazepam (Ativan Inj*) 0 - 6 mg IV PUSH .[facility] PROTOCOL [facility]; Protocol Last Admin: 04/29/18 19:27 Dose: 2 mg Multivitamins/Minerals (Theragran/Minerals Tab*) 1 tab PO DAILY [facility] Last Admin: 04/30/18 09:12 Dose: 1 tab Nicotine (Nicotine Patch 14 Mg/24 Hr*) 1 patch TRANSDERM DAILY [facility] Last Admin: 04/30/18 09:12 Dose: 1 patch Pharmacy Profile Note (Nicotine Patch Removal Note*) 1 note FOLLOW UP 2100 [facility] Last Admin: 04/29/18 21:37 Dose: Not Given Phenytoin Sodium (Dilantin Cap(*)) 300 mg PO BEDTIME [facility] Last Admin: 04/29/18 20:49 Dose: 300 mg Thiamine HCl (Vitamin B-1 Tab*) 100 mg PO DAILY [facility] Last Admin: 04/30/18 09:12 Dose: 100 mg On exam, awake, alert, oriented x 3. Pupils are symmetric and reactive to light. EOMI. Face symmetric. Tongue in midline. Strength 5/5 throughout. Finger to nose intact bilaterally. EEG: Sharp waves in the fronto-central region Assessment: 42-year-old male with history of epilepsy and non-compliance presented with breakthrough seizures. The patient was loaded with fosphenytoin and to continue phenytoin at 300 mg at night. From neurological standpoint can be discharged with follow up as outpatient and check the level of Dilantin in about 2-3 weeks. Plan: []
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
== END 2018-04-30 14:58 | disposition home or self-care (01) ==
LOC: ED 07:51 → INTOOBSV 10:05 → MEDTELE 10:05
PROVIDERS: ADMIT Internal Medicine; ATTEND Internal Medicine
DX: G40.909 Epilepsy, unspecified, not intractable, without status epilepticus (principal); I10 Essential (primary) hypertension; R55 Syncope and collapse; F17.210 Nicotine dependence, cigarettes, uncomplicated; F14.10 Cocaine abuse, uncomplicated; F10.10 Alcohol abuse, uncomplicated
CPT/HCPCS: 36415; 70450; 71045; 80053; 80185; 80307; 80320; 81003; 81015; 82550; 82553; 83605; 83735; 84443; 84484; 85025; 85610; 85730; 87086; 93005; 95819; 99284; 99406; A9270-GY; G0378; G0480; J1650; J2060; J3411; Q2009

== ENCOUNTER 2018-05-02 14:10 | Emergency (ER) | payer SELFPAY ==
--- NOTE | 2018-05-02 14:40 | ED ---
Dizziness - HPI Summary HPI Summary: This is andie Atkinson documenting for attending Saul Marlow MD. This patient is a 42 year old M presenting to [facility] accompanied by a woman with a chief complaint of dizziness since 10AM. Symptoms alleviated by nothing. Patient reports internal dizziness. Patient denies visual problems or LESTER. PMHX Seizures and HTN. RX Dilantin. Pt reports that he gets dizzy before seizures, but hasnt had seizure activity today. Pt states he used to take HTN medication but no longer does. Pts last seizure was two days ago and he was seen in the ED. Pt last took his seizure medication last night. Pt has felt this way in the past. - History Of Current Complaint Chief Complaint: EDDizziness Stated Complaint: DIZZINESS/SEIZURES Time Seen by Provider: 05/02/18 14:17 Hx Obtained From: Patient Onset/Duration: Still Present Timing: Hours Severity Initially: Moderate Severity Currently: Moderate Character: Head Spinning, Dizzy Aggravating Factor(s): Nothing Alleviating Factor(s): Nothing - Allergies/Home Medications Allergies/Adverse Reactions: Allergies Allergy/AdvReac Type Severity Reaction Status Date / Time milk Allergy Vomiting Verified 05/02/18 14:16 PMH/Surg Hx/FS Hx/Imm Hx Cardiovascular History: Reports: Hx Hypertension Sensory History: Denies: Hx Contacts or Glasses, Hx Legally Blind, Hx Deafness, Hx Hearing Aid Opthamlomology History: Denies: Hx Contacts or Glasses, Hx Legally Blind Neurological History: Reports: Hx Seizures Infectious Disease History: No Infectious Disease History: Denies: Traveled Outside the [place] in Last 30 Days - Family History Known Family History: Positive: Hypertension, Seizure Disorder - Social History Alcohol Use: Daily Substance Use Type: Reports: Cocaine, Marijuana Hx Tobacco Use: Yes Smoking Status (MU): Heavy Every Day Tobacco Smoker Review of Systems Negative: Fever Negative: Blurred Vision Neurological: Other - Dizziness Negative: Headache All Other Systems Reviewed And Are Negative: Yes Physical Exam - Summary Physical Exam Summary: Appearance: The patient is well-nourished in no acute distress and in no acute pain. Skin: The skin is warm and dry and skin color reflects adequate perfusion. HEENT: The head is normocephalic and atraumatic. The pupils are equal and reactive. The conjunctivae are clear and without drainage. Nares are patent and without drainage. Mouth reveals moist mucous membranes and the throat is without erythema and exudate. The external ears are intact. The ear canals are patent and without drainage. The tympanic membranes are intact. Neck: The neck is supple with full range of motion and non-tender. There are no carotid bruits. There is no neck vein distension. Respiratory: Chest is non-tender. Lungs are clear to auscultation and breath sounds are symmetrical and equal. Cardiovascular: Heart is regular rate and rhythm. There is no murmur or rub auscultated. There is no peripheral edema and pulses are symmetrical and equal. Abdomen: The abdomen is soft and non-tender. There are normal bowel sounds heard in all four quadrants and there is no organomegaly palpated. Musculoskeletal: There is no back tenderness noted. Extremities are non-tender with full range of motion. There is good capillary refill. There is no peripheral edema or calf tenderness elicited. Neurological: Patient is alert and oriented to person, place and time. The patient has symmetrical motor strength in all four extremities. Cranial nerves are grossly intact. Deep tendon reflexes are symmetrical and equal in all four extremities. Psychiatric: The patient has an appropriate affect and does not exhibit any anxiety or depression. Triage Information Reviewed: Yes Vital Signs On Initial Exam: Initial Vitals Temp Pulse Resp BP Pulse Ox 98.7 F 101 16 163/100 96 05/02/18 14:12 05/02/18 14:12 05/02/18 14:12 05/02/18 14:12 05/02/18 14:12 Vital Signs Reviewed: Yes Diagnostics - Vital Signs Vital Signs Temp Pulse Resp BP Pulse Ox 05/02/18 14:12 98.7 F 101 16 163/100 96 - Laboratory Result Diagrams: 05/02/18 14:39 05/02/18 14:39 Lab Statement: Any lab studies that have been ordered have been reviewed, and results considered in the medical decision making process. Dizzy Course/Dx - Course Course Of Treatment: Mr. Hayes presented to the emergency department complaining of the feeling of internal dizziness. He is familiar with this feeling and states that he gets it before he has a seizure. He was treated here for seizures a few days ago and started on Dilantin which she states she's been taking. He also has a history of hypertension and has not been taking any medication for that it presents fairly hypertensive running in the range of 150/ 110. Labs were checked and were within normal limits and his Dilantin level was therapeutic. He was given amlodipine for his blood pressure and symptomatically he improved completely however his blood pressure remained about the same throughout. I will start him on a prescription for amlodipine but encourage him to follow-up with a PCP for regulation of his blood pressure. I'm not sure exactly why he improved but he did not have a seizure here. - Diagnoses Provider Diagnoses: HTN (hypertension) Discharge - Sign-Out/Discharge Documenting (check all that apply): Patient Departure - Discharge - Discharge Plan Condition: Stable Disposition: HOME Prescriptions: amLODIPine TAB* [Norvasc 5 mg TAB*] 10 mg PO DAILY #30 tab Patient Education Materials: Chronic Hypertension (ED) Referrals: [facility] REFERRAL [Outside] - 3 Days Additional Instructions: RETURN TO THE EMERGENCY DEPARTMENT FOR CHANGING OR WORSENING SYMPTOMS. - Billing Disposition and Condition Condition: STABLE Disposition: Home
[2018-05-02 14:51] LABS: ABS Basophils 0 10^3/ul (0-0.2); ABS Eosinophils 0.2 10^3/ul (0-0.6); ABS Lymphocytes 2.4 10^3/ul (1.0-4.8); ABS Monocytes 0.9 10^3/ul (0-0.8); ABS Nucleated RBC 0 10^3/ul; Eosinophil % 2.8 % (0-6); Hematocrit 39 % (42-52); Lymphocyte % 27.6 % (25-47); Mean Corpuscular HGB Conc 34 g/dl (31-36); Mean Corpuscular Hemoglobin 31 pg (27-31); Mean Corpuscular Volume 91 fL (80-94); Mean Platelet Volume 9.8 um3 (7.4-10.4); Nucleated Red Blood Cells % 0.1; Platelet Count 170 10^3/ul (150-450); Red Blood Count 4.25 10^6/ul (4.00-5.40); Red Cell Distribution Width 15 % (10.5-15); White Blood Count 8.6 10^3/ul (3.5-10.8)
[2018-05-02 14:53] LABS: Urine Appearance Clear; Urine Blood 1+ (Negative); Urine Color Yellow; Urine Ketones 2+ (Negative); Urine Protein Negative (Negative); Urine Red Blood Cell 2+(6-10/hpf) (Absent); Urine Specific Gravity 1.024 (1.010-1.030); Urine Urobilinogen Negative (Negative); Urine White Blood Cell Trace(0-5/hpf) (Absent)
[2018-05-02 14:55] LABS: INR 0.98 (0.77-1.02)
[2018-05-02 15:05] LABS: EGFR Non-African American 74.1 (>60)
[2018-05-02] MEDS ORDERED: amLODIPine TAB* 5 MG PO ONE (15:50)
[2018-05-02 17:46] VITALS: BP 152/113
== END 2018-05-02 17:53 | disposition home or self-care (01) ==
LOC: ED 14:10
DX: I10 Essential (primary) hypertension (principal); R56.9 Unspecified convulsions; F17.200 Nicotine dependence, unspecified, uncomplicated
CPT/HCPCS: 36415; 80053; 80185; 80307; 80320; 81003; 81015; 83605; 83735; 85025; 85610; 87086; 99283; A9270-GY; G0480

== ENCOUNTER → 2018-06-13 14:00 | Emergency (ER) | payer SELFPAY ==
[~2018-06-13 14:00] MED LIST: Ibuprofen TAB* 800 MG PO ONE
[2018-06-13 14:07] VITALS: BP 163/107
--- NOTE | 2018-06-13 16:20 | RAD ---
INDICATION: Right thumb pain since a fall the previous day COMPARISON: None. TECHNIQUE: 4 views of the right hand and 3 views of the right wrist were obtained. FINDINGS: The adequately corticated bones are in normal alignment. No significant focal osseous abnormality or fracture is seen. Joint spaces appear maintained. IMPRESSION: Normal radiographic series of the right hand and wrist. If the patient's symptoms persist, follow-up imaging is recommended.
--- NOTE | 2018-06-13 16:40 | ED ---
Upper Extremity Pain - HPI Summary HPI Summary: [id number] patient presents with right pain and swelling since falling last night. He reports he fell and caught himself with his thumb. 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 He has not tried anything for pain prior to arrival however he received an ice pack while here and he reports his pain has improved some. No previous injury to this area. No other injuries his result of falling. BP elevated at triage - denies CP, LESTER, visual change, SOB, fatigue. In pain. 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 - Allergies/Home Medications Allergies/Adverse Reactions: Allergies Allergy/AdvReac Type Severity Reaction Status Date / Time milk Allergy Vomiting Verified 06/13/18 14:02 PMH/Surg Hx/FS Hx/Imm Hx Previously Healthy: Yes Endocrine/Hematology History: Denies: Hx Anticoagulant Therapy, Hx Blood Disorders Cardiovascular History: Reports: Hx Hypertension Sensory History: Denies: Hx Contacts or Glasses, Hx Legally Blind, Hx Deafness, Hx Hearing Aid Opthamlomology History: Denies: Hx Contacts or Glasses, Hx Legally Blind Neurological History: Reports: Hx Seizures Infectious Disease History: No Infectious Disease History: Denies: Traveled Outside the [place] in Last 30 Days - Family History Known Family History: Positive: Hypertension, Seizure Disorder - Social History Occupation: Unemployed Alcohol Use: None Hx Substance Use: No Substance Use Type: Reports: None Hx Tobacco Use: Yes Smoking Status (MU): Heavy Every Day Tobacco Smoker Review of Systems Constitutional: Negative Negative: Fatigue Eyes: Negative Negative: Blurred Vision, Diplopia Cardiovascular: Negative Negative: Palpitations, Chest Pain Respiratory: Negative Negative: Shortness Of Breath Gastrointestinal: Negative Negative: Vomiting, Nausea Positive: no symptoms reported Positive: Arthralgia, Myalgia, Decreased ROM, Edema Positive: Bruising Neurological: Negative Positive: Anxious All Other Systems Reviewed And Are Negative: Yes Physical Exam Triage Information Reviewed: Yes Vital Signs On Initial Exam: Initial Vitals Temp Pulse Resp BP Pulse Ox 96.7 F 105 16 163/107 97 06/13/18 14:02 06/13/18 14:02 06/13/18 14:02 06/13/18 14:02 06/13/18 14:02 Vital Signs Reviewed: Yes Appearance: Positive: Well-Appearing, Well-Nourished, Pain Distress - moderate w / movement of thumb Skin: Positive: Warm, Skin Color Reflects Adequate Perfusion, Dry - edema of Rt basilar/thenar region - TTP - no skin breakdown Eyes: Positive: EOMI ENT: Positive: Hearing grossly normal Respiratory/Lung Sounds: Positive: Breath Sounds Present Cardiovascular: Positive: Pulses are Symmetrical in both Upper and Lower Extremities Musculoskeletal: Positive: Limited @ - Rt thumb resisted movement limited d/t pain, Pain @ - Rt thumb TTP - pain w/ resisted movements but no weakness Neurological: Positive: Normal, Sensory/Motor Intact, Alert, Oriented to Person Place, Time, CN Intact II-III Psychiatric: Positive: Normal Diagnostics - Vital Signs Vital Signs Temp Pulse Resp BP Pulse Ox 06/13/18 14:02 96.7 F 105 16 163/107 97 - Laboratory Lab Statement: Any lab studies that have been ordered have been reviewed, and results considered in the medical decision making process. Course/Dx - Course Course Of Treatment: XR: no fx, no dislocation - suspect sprain. Thumb spica placed - N/V intact before and after. F/u w/ PCP in 1 week and discussed possible need for ortho if same or worse. Pt agrees w/ plan. ALso advised f/u for HTN and danger s/sx reviewed - pt agrees w/ plan. - Diagnoses Provider Diagnoses: Sprain of right thumb Discharge - Sign-Out/Discharge Documenting (check all that apply): Patient Departure - Discharge Plan Condition: Stable Disposition: HOME Prescriptions: Ibuprofen TAB* [Motrin TAB* 600 MG] 600 mg PO Q6H PRN #20 tab PRN Reason: Pain Patient Education Materials: Skier's Thumb (ED), Hypertension (ED) [facility]errals: [facility] [Outside] Additional Instructions: Keep splint in place until seen by PCP at the end of the week for recheck of symptoms. Call [facility] tomorrow to schedule appointment, Take medications as directed Rest, ice, elevate *If you develop numbness, tingling, weakness, swelling or skin discoloration, remove splint and elevate arm for 20 minutes. If symptoms persist, return to ED Also, your blood pressure was found to be elevated today. Please follow up with PCP ([facility]) to have them recheck it and discuss adjustments of medication as needed. If in the meantime you develop chest pain, headache, change in vision, shortness of breath, jaw pain, weakness, dizziness or syncope , return to the emergency department. - Billing Disposition and Condition Condition: STABLE Disposition: Home
== END | disposition home or self-care (01) ==
LOC: ED 14:00
DX: S63.601A Unspecified sprain of right thumb, initial encounter (principal); I10 Essential (primary) hypertension; Z72.0 Tobacco use; W19.XXXA Unspecified fall, initial encounter; Y92.9 Unspecified place or not applicable
CPT/HCPCS: 99282; A9270-GY

== ENCOUNTER 2018-06-14 03:35 | Emergency (ER) | payer SELFPAY ==
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
[2018-06-14] MEDS ORDERED: Phenytoin IV(*) 1,000 MG in NS 0.9% 250 ML* 180 ML IV ONE (04:03)
[2018-06-14] MEDS ORDERED: Lisinopril TAB* 10 MG PO ONE (04:05)
[2018-06-14 05:30] VITALS: BP 133/92
== END 2018-06-14 05:43 | disposition home or self-care (01) ==
LOC: ED 03:35
DX: G40.909 Epilepsy, unspecified, not intractable, without status epilepticus (principal); S01.512A Laceration without foreign body of oral cavity, initial encounter; X58.XXXA Exposure to other specified factors, initial encounter; Y92.9 Unspecified place or not applicable; F17.210 Nicotine dependence, cigarettes, uncomplicated
CPT/HCPCS: 96365; 99283; A9270-GY; J1165